=== PATIENT | female | born 1985 | race Caucasian/White ===

== ENCOUNTER 2018-09-02 14:36 | Emergency (ER) | payer SELFPAY ==
[~2018-09-02] VITALS: Ht 152.4 cm; Wt 59.0 kg
[2018-09-02] MEDS ORDERED: BACITRACIN ZINC OINT UDPKT TOP ONE (18:30)
[2018-09-02] MEDS ORDERED: TETANUS, DIPHTHERIA, PERTUSSIS VAC/PF 0.5ML (>7YR OLD) IM ONE (18:30)
[2018-09-02] MEDS ORDERED: LIDOCAINE HCL/PF 1% 10 MG/ML 5ML VIAL IJ ONE (18:30)
[2018-09-02 19:25] VITALS: BP 131/82
== END 2018-09-02 19:38 | disposition home or self-care (01) ==
LOC: ER 16:04
DX: S61.412A Laceration without foreign body of left hand, initial encounter (principal); W26.0XXA Contact with knife, initial encounter; Y93.89 Activity, other specified; Y92.018 Other place in single-family (private) house as the place of occurrence of the external cause
CPT/HCPCS: 12002; 90471; 90715; 99283; J3490; Z7610

== ENCOUNTER 2018-09-04 14:34 | Emergency (ER) | payer SELFPAY ==
[~2018-09-04] VITALS: Ht 160 cm; Wt 60.0 kg
[2018-09-04 15:19] VITALS: BP 122/78
== END 2018-09-04 15:18 | disposition home or self-care (01) ==
LOC: ER 14:34
DX: S61.512D Laceration without foreign body of left wrist, subsequent encounter (principal); Z98.890 Other specified postprocedural states; X58.XXXD Exposure to other specified factors, subsequent encounter
CPT/HCPCS: 99281

== ENCOUNTER 2018-09-12 16:16 | Emergency (ER) | payer SELFPAY ==
[~2018-09-12] VITALS: Ht 160 cm; Wt 63.0 kg
[2018-09-12 21:45] VITALS: BP 125/72
== END 2018-09-12 21:47 | disposition home or self-care (01) ==
LOC: ER 16:29
DX: S61.412A Laceration without foreign body of left hand, initial encounter (principal); Z98.890 Other specified postprocedural states; X58.XXXA Exposure to other specified factors, initial encounter; Y93.89 Activity, other specified; Y92.89 Other specified places as the place of occurrence of the external cause; Y99.8 Other external cause status
CPT/HCPCS: 12001; 99283